=== PATIENT | male | born 1940 | race Caucasian/White ===

== ENCOUNTER 2017-03-01 07:47 | Emergency (ER) | payer OTHER ==
[~2017-03-01] VITALS: Ht 175.3 cm; Wt 86.0 kg
[2017-03-01 07:50] VITALS: TEMP 36.8; Ht 175.3 cm; Wt 86.0 kg
[2017-03-01] MEDS ORDERED: ACETAMINOPHEN 500 MG TAB PO STA (08:12)
--- NOTE | 2017-03-01 08:15 | EMERGENCY ROOM VISIT NOTE ---
History Report prepared by Carmen: Tamera Danielson Under the Supervision of: Dr. Darryl Knowles M.D. First contact with patient: 07:55 Chief Complaint: HAND PAIN/INJURY Stated Complaint: SEVERE PAIN L HAND FOREARM RESTRICTED MOVEMENT History of Present Illness The patient is a 76 year old male who presents to the Emergency Room with complaints of persistent left arm and hand pain that began yesterday. He currently rates his discomfort as an 8/10 in severity. The patient states that he woke up yesterday with his entire left arm tingling, but he states that he attributed that to sleeping on his left arm. He states that throughout the day he gradually developed left arm pain and left hand pain. The patient states that he now has limited function of his left arm and hand due to the pain. He reports increased pain when his arm hangs down. The patient notes swelling to his left hand. He denies any pain in his elbow. The patient states that since 1500 yesterday, he has had four 200 mg Aleve. He states that he has a history of gout, noting that typically he has had it in his great toes. Source of History: patient Onset: yesterday Position: arm (left), hand (left) Symptom Intensity: 8/10 Timing: other (persistent) Modifying Factors (Worsening): other (letting arm hang down) Note: Associated symptoms: left arm and hand tingling, left hand swelling, limited function of left arm and hand Review of Systems See HPI for pertinent positives & negatives. A total of 10 systems reviewed and were otherwise negative. Past Medical & Surgical Surgical Problems: (1) H/O hernia repair (2) History of left knee replacement Family History Patient reports no known family medical history. Social History Smoking Status: Never Smoker Smokeless Tobacco Use: No Alcohol Use: occasionally Housing Status: lives alone Occupation Status: retired Current/Historical Medications Scheduled Allopurinol (Zyloprim), Unknown Dose PO Q2D Doxycycline Monohydrate (Monodox), 100 MG PO BID Gabapentin (Neurontin), 800 MG PO BID Metformin Hcl (Glucophage), 500 MG PO BID Simvastatin (Zocor), Unknown Dose PO Q2D Allergies Coded Allergies: No Known Allergies (Unverified , 03/01/17) Physical Exam Vital Signs Date Time Temp Pulse Resp B/P (MAP) Pulse Ox O2 Delivery O2 Flow Rate FiO2 03/01/17 10:30 78 16 159/78 96 03/01/17 07:50 36.8 84 20 162/91 96 Room Air Physical Exam GENERAL: Patient is a healthy-appearing well-nourished male HEAD: Normocephalic atraumatic EYES: Ocular movements intact pupils equal and react to light OROPHARYNX mucous membranes are moist no exudates present no erythema or edema present NECK: Supple no nuchal rigidity CHEST: Good equal expansion LUNGS: Clear and equal to auscultation CARDIAC: Normal S1 and S2 ABDOMEN: Soft nontender no guarding BACK: No CVA tenderness EXTREMITIES: Good range of motion of the left fingers and wrist, however it is exquisitely tender to more. NEURO: Patient is following commands and answering questions appropriately. Alert and oriented x3 Cranial Nerves 2-12 grossly intact Medical Decision & Procedures ER Provider Diagnostic Interpretation: Radiology results as stated below per my review and radiologist interpretation: LEFT UPPER EXTREMITY VENOUS DOPPLER HISTORY: Left arm pain. COMPARISON STUDY: None. FINDINGS: The left internal jugular vein is patent. There is normal flow within the left subclavian vein. There is normal flow and compressibility within the left axillary, basilic, brachial, radial, ulnar, and visualized cephalic veins. IMPRESSION: No DVT within the left upper extremity. Electronically signed by: Chao Casey M.D. 03/01/2017 9:14 AM Dictated Date/Time: 03/01/2017 9:14 AM L HAND MIN 3 VIEWS ROUTINE CLINICAL HISTORY: Pt c/o left hand swelling pain. Edema. COMPARISON: None. 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 Is considered most severe at the first and second carpometacarpal joint. Considerable degenerative change of the interphalangeal joints. Soft tissue vascular calcification. Mild soft tissue edema. IMPRESSION: Severe degenerative change. Mild soft tissue edema. The above report was generated using voice recognition software. It may contain grammatical, syntax or spelling errors. Electronically signed by: Shubham Thurman M.D. 03/01/2017 8:48 AM Dictated Date/Time: 03/01/2017 8:48 AM L FOREARM 2 VIEWS ROUTINE CLINICAL HISTORY: Left arm pain COMPARISON: None. DISCUSSION: The bones are osteopenic. There are vascular calcifications present. No acute fractures are evident. There is a peritendinous calcification at the level of the medial epicondyle of distal humerus. IMPRESSION: Osteopenia. No fractures identified. No destructive lesions are evident. Electronically signed by: Taqueria Beal M.D. 03/01/2017 8:50 AM Dictated Date/Time: 03/01/2017 8:48 AM Laboratory Results 03/01/17 08:25 Red Blood Count 4.10, Mean Corpuscular Volume 91.5, Mean Corpuscular Hemoglobin 32.7, Mean Corpuscular Hemoglobin Concent 35.7, Mean Platelet Volume 8.8, Neutrophils (%) (Auto) 58.2, Lymphocytes (%) (Auto) 23.5, Monocytes (%) (Auto) 15.9, Eosinophils (%) (Auto) 2.1, Basophils (%) (Auto) 0.1, Neutrophils # (Auto ) 4.81, Lymphocytes # (Auto) 1.94, Monocytes # (Auto) 1.31, Eosinophils # (Auto ) 0.17, Basophils # (Auto) 0.01 03/01/17 08:25 Test 03/01/17 08:25 White Blood Count 8.26 K/uL (4.8-10.8) Red Blood Count 4.10 M/uL (4.7-6.1) Hemoglobin 13.4 g/dL (14.0-18.0) Hematocrit 37.5 % (42-52) Mean Corpuscular Volume 91.5 fL (80-100) Mean Corpuscular Hemoglobin 32.7 pg (25-34) Mean Corpuscular Hemoglobin Concent 35.7 g/dl (32-36) Platelet Count 231 K/uL (130-400) Mean Platelet Volume 8.8 fL (7.4-10.4) Neutrophils (%) (Auto) 58.2 % Lymphocytes (%) (Auto) 23.5 % Monocytes (%) (Auto) 15.9 % Eosinophils (%) (Auto) 2.1 % Basophils (%) (Auto) 0.1 % Neutrophils # (Auto) 4.81 K/uL (1.4-6.5) Lymphocytes # (Auto) 1.94 K/uL (1.2-3.4) Monocytes # (Auto) 1.31 K/uL (0.11-0.59) Eosinophils # (Auto) 0.17 K/uL (0-0.5) Basophils # (Auto) 0.01 K/uL (0-0.2) RDW Standard Deviation 42.8 fL (36.4-46.3) RDW Coefficient of Variation 12.8 % (11.5-14.5) Immature Granulocyte % (Auto) 0.2 % Immature Granulocyte # (Auto) 0.02 K/uL (0.00-0.02) Erythrocyte Sedimentation Rate 18 mm/hr (0-14) Anion Gap 9.0 mmol/L (3-11) Est Creatinine Clear Calc Drug Dose 88.7 ml/min Estimated GFR () 102.2 Estimated GFR (Non- 88.1 BUN/Creatinine Ratio 11.1 (10-20) Uric Acid 4.8 mg/dl (2.6-7.2) Calcium Level 8.9 mg/dl (8.5-10.1) Total Bilirubin 0.7 mg/dl (0.2-1) Direct Bilirubin 0.2 mg/dl (0-0.2) Aspartate Amino Transf (AST/SGOT) 19 U/L (15-37) Alanine Aminotransferase (ALT/SGPT) 30 U/L (12-78) Alkaline Phosphatase 110 U/L (45-117) C-Reactive Protein 2.66 mg/dl (0-0.29) Total Protein 7.5 gm/dl (6.4-8.2) Albumin 4.0 gm/dl (3.4-5.0) Thyroid Stimulating Hormone (TSH) 2.350 uIu/ml (0.300-4.500) Lyme Disease IgG Antibody NEG (NEG) Lyme Disease IgM Antibody NEG (NEG) Anti-Streptolysin O Antibody Screen NEG IU/ml (<200 IU) Labs reviewed by ED physician. Medications Administered Medications (Trade) Dose Ordered Sig/Anthony Route Start Time Stop Time Status Last Admin Dose Admin Acetaminophen (Tylenol Tab) 1,000 mg NOW STAT PO 03/01/17 08:12 03/01/17 08:15 DC 03/01/17 08:33 1,000 MG Ceftriaxone Sodium (Rocephin Inj) 1 gm NOW STAT IV 03/01/17 08:49 03/01/17 08:50 DC 03/01/17 09:21 1 GM Trimethoprim/ Sulfamethoxazole (Septra Ds 800/ 160MG Tab) 1 tab NOW STAT PO 03/01/17 08:49 03/01/17 08:50 DC 03/01/17 09:21 1 TAB ED Course 0800: Past medical records reviewed. The patient was evaluated in room A12B. A complete history and physical examination was performed. 0812: Ordered Tylenol Tab 1000 mg PO. 0849: Ordered Trimethoprim/Sulfamethoxazole 1 tab PO, Rocephin Inj 1 gm IV. 0924: I reevaluated the patient and he is resting comfortably. I discussed the exam findings with him and I discussed the treatment plan. He verbalized complete understanding and agreement. He is ready to go home. Medical Decision Differential diagnosis: Etiologies such as cellulitis, abscess, MRSA infection, DVT, necrotizing fasciitis, dermatitis, drug eruption, as well as others were entertained. This is a 76-year-old male who presents emergency department complaining of left arm pain. The patient does appear to have a mild cellulitis. I will note he has a normal white blood cell count is afebrile here in emergency department. His uric acid level is normal and he notes he has never had gout his wrist before. I will place the patient in a splint and a sling. The patient was given Tylenol emergency department and he does not want anything stronger. The patient was started on Rocephin and Bactrim however I will continue the patient on doxycycline pending Lyme culture results. I do feel that the patient as well as to be discharged home however I encouraged patient to return if the rash gets worse. Patient is going to follow-up with orthopedics. Patient was in agreement with the treatment plan. Medication Reconcilliation Current Medication List: was personally reviewed by me Blood Pressure Screening Patient's blood pressure: Elevated blood pressure Blood pressure disposition: Referred to PCP Impression Primary Impression: Cellulitis Additional Impression: Arm pain, left Scribe Attestation The scribe's documentation has been prepared under my direction and personally reviewed by me in its entirety. I confirm that the note above accurately reflects all work, treatment, procedures, and medical decision making performed by me. Departure Information Dispostion Home / Self-Care Prescriptions Doxycycline Monohydrate (Monodox) 100 Mg Cap 100 MG PO BID for 10 Days, #20 CAP Prov: Darryl Knowles MD 03/01/17 Referrals No Doctor, Assigned Forms HOME CARE DOCUMENTATION FORM, IMPORTANT VISIT INFORMATION, School Instructions, Work Instructions Patient Instructions Cellulitis - [facility], ED Strain Muscle Ext, My [facility] Additional Instructions Follow up with Dr Coulter office You were found to have an elevated blood pressure today (>120 sytolic or >90 diastolic). Per medicare guidelines, you need to follow up with this blood pressure screening with your Primary Care Physician (PCP). For a new PCP call [phone]. Take 1000 mg Tylenol every 6 hours Culture results are usually available in approx 48 hours You have been examined and treated today on an emergency basis only. This is not a substitute for, or an effort to provide, complete comprehensive medical care. It is impossible to recognize and treat all injuries or illnesses in a single emergency department visit. It is therefore important that you follow up closely with your PCP. Call as soon as possible for an appointment. Thank you for your time and consideration. I look forward to speaking with you again soon. Please don't hesitate to call us if you have any questions. Problem Qualifiers Primary Impression: Cellulitis Site of cellulitis: extremity Site of cellulitis of extremity: upper extremity Laterality: left Qualified Codes: L03.114 - Cellulitis of left upper limb
[2017-03-01 08:38] LABS: BASO % 0.1 %; BASO ABS # 0.01 K/uL (0-0.2); COMPLETE YES; EOS % 2.1 %; HEMATOCRIT 37.5 % (42-52); IG% 0.2 %; LYMPH % 23.5 %; LYMPH ABS # 1.94 K/uL (1.2-3.4); MEAN CELL VOLUME 91.5 fL (80-100); MEAN CORPUSCULAR HEMOGLOBIN 32.7 pg (25-34); MEAN CORPUSCULAR HGB CONC 35.7 g/dl (32-36); MEAN PLATELET VOLUME 8.8 fL (7.4-10.4); MONO % 15.9 %; NEUT % 58.2 %; PLATELET COUNT 231 K/uL (130-400); WHITE BLOOD COUNT 8.26 K/uL (4.8-10.8)
[2017-03-01] MEDS ORDERED: GABA800T PO (08:39)
[2017-03-01] MEDS ORDERED: SIMV5TAB2 PO (08:39)
[2017-03-01] MEDS ORDERED: ALLO100T PO (08:39)
[2017-03-01] MEDS ORDERED: GLC/500 PO (08:39)
[2017-03-01] MEDS ORDERED: CEFTRIAXONE SOD INJ 1 GM ADDVIAL IV STA (08:49)
[2017-03-01] MEDS ORDERED: SULFAMETHOXAZOLE/TRIMETHOPRIM DS 800/160MG TAB PO STA (08:49)
--- NOTE | 2017-03-01 08:50 | DIAGNOSTIC IMAGING REPORT ---
L HAND MIN 3 VIEWS ROUTINE CLINICAL HISTORY: Pt c/o left hand swelling pain. Edema. COMPARISON: None. 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 Is considered most severe at the first and second carpometacarpal joint. Considerable degenerative change of the interphalangeal joints. Soft tissue vascular calcification. Mild soft tissue edema. IMPRESSION: Severe degenerative change. Mild soft tissue edema. The above report was generated using voice recognition software. It may contain grammatical, syntax or spelling errors. Electronically signed by: Shubham Thurman M.D. 03/01/2017 8:48 AM Dictated Date/Time: 03/01/2017 8:48 AM
--- NOTE | 2017-03-01 08:52 | DIAGNOSTIC IMAGING REPORT ---
L FOREARM 2 VIEWS ROUTINE CLINICAL HISTORY: Left arm pain COMPARISON: None. DISCUSSION: The bones are osteopenic. There are vascular calcifications present. No acute fractures are evident. There is a peritendinous calcification at the level of the medial epicondyle of distal humerus. IMPRESSION: Osteopenia. No fractures identified. No destructive lesions are evident. Electronically signed by: Taqueria Beal M.D. 03/01/2017 8:50 AM Dictated Date/Time: 03/01/2017 8:48 AM
[2017-03-01 08:55] LABS: BUN/CREATININE RATIO 11.1 (10-20); C-REACTIVE PROTEIN 2.66 mg/dl (0-0.29); CALCIUM 8.9 mg/dl (8.5-10.1); CREATININE 0.77 mg/dl (0.60-1.40); URIC ACID 4.8 mg/dl (2.6-7.2)
[2017-03-01 08:59] LABS: ANTI-STREP O SCR: 5YRS OR > NEG IU/ml (<200 IU)
[2017-03-01 09:06] LABS: THYROID STIMULATING HORMONE 2.35 uIu/ml (0.300-4.500)
--- NOTE | 2017-03-01 09:16 | DIAGNOSTIC IMAGING REPORT ---
LEFT UPPER EXTREMITY VENOUS DOPPLER HISTORY: Left arm pain. COMPARISON STUDY: None. FINDINGS: The left internal jugular vein is patent. There is normal flow within the left subclavian vein. There is normal flow and compressibility within the left axillary, basilic, brachial, radial, ulnar, and visualized cephalic veins. IMPRESSION: No DVT within the left upper extremity. Electronically signed by: Chao Casey M.D. 03/01/2017 9:14 AM Dictated Date/Time: 03/01/2017 9:14 AM
[2017-03-01] MEDS ORDERED: DOXY100C76 PO (09:28)
[2017-03-01 09:37] LABS: LYME DISEASE AB IGG NEG (NEG); LYME DISEASE AB IGM NEG (NEG)
[2017-03-01 10:30] VITALS: BP 159/78; PULSE 78; O2SAT 96
[2017-03-04 13:32] LABS: EHRLICHIA CHAFF IGG AB <1:64 (<1:64); EHRLICHIA CHAFF IGM AB <1:20 (<1:20)
== END 2017-03-01 10:45 | disposition home or self-care (01) ==
LOC: C.EDB 07:48 → C.EDA 10:45
DX: L03.114 Cellulitis of left upper limb (principal); M79.602 Pain in left arm; R03.0 Elevated blood-pressure reading, without diagnosis of hypertension; Z96.652 Presence of left artificial knee joint; Z79.84 Long term (current) use of oral hypoglycemic drugs